=== PATIENT | female | born 1975 | race Caucasian/White ===

== ENCOUNTER 2018-09-09 21:10 | Emergency (ER) | payer SELFPAY ==
[~2018-09-09] VITALS: Ht 177.8 cm; Wt 100.0 kg
[2018-09-09 21:17] VITALS: TEMP 97
[2018-09-09 21:52] LABS: BASO # 0.1 (0.0-0.2); BASO % 0.6 % (0.0-2.0); EOS # 0.3 (0.0-0.7); EOS % 3.3 % (0-4.0); GRAN # 5.3 (1.4-6.5); GRAN % 67.9 % (42.2-75.2); HEMATOCRIT 44.6 % (37.0-47.0); HEMOGLOBIN 15.1 g/dl (12.5-16.0); LYMPH # 1.5 (1.2-3.4); LYMPH % 19.2 % (20.0-51.0); MEAN CELL VOLUME 86 fl (80.0-100.0); MEAN CORPUSCULAR HEMOGLOBIN 29 pg (27.0-31.0); MEAN CORPUSCULAR HGB CONC 34 g/dl (33.0-37.0); MEAN PLATELET VOLUME 9.4 fl (7.4-10.4); MONO # 0.7 (0.1-0.6); MONO % 8.6 % (1.7-9.3); PLATELET COUNT 297 K/mm3 (130-400); REDCELL DISTRIBUTION WIDTH-CV 13.2 % (11.5-14.5)
[2018-09-09 22:05] LABS: ALBUMIN 4.8 gm/dL (3.5-5.0); BILIRUBIN,TOTAL 0.3 mg/dL (0.0-1.0); C-REACTIVE PROTEIN 1.3 mg/dL (0.0-0.9); CALCIUM 9.8 mg/dL (8.4-10.2); CREATININE, serum 0.56 (0.52-1.25); POTASSIUM 3.3 mmol/L (3.4-5.0)
[2018-09-10 00:35] LABS: COLLECTION METHOD CLEAN CATCH
[2018-09-10 00:55] LABS: MUCOUS Present /lpf; PH 6 (5-8); SQUAMOUS EPITHELIAL 0-2 /hpf; URINE APPEARANCE Clear; URINE BACTERIA None Seen /hpf; URINE BILIRUBIN Negative (NEGATIVE); URINE BLOOD 2+ (NEGATIVE); URINE COLOR Yellow; URINE GLUCOSE Negative (NEGATIVE); URINE KETONE Negative (NEGATIVE); URINE LEUKOCYTE ESTERASE Negative (NEGATIVE); URINE NITRATE Negative (NEGATIVE); URINE PROTEIN(semi-quant) Negative (NEGATIVE); URINE RBC 0-2 /hpf; URINE UROBILINOGEN Negative (NEGATIVE)
[2018-09-10] MEDS ORDERED: ZOFRAN ODT4 MG PO (02:14)
[2018-09-10] MEDS ORDERED: NORCO 325 MG-51 TAB PO (02:14)
[2018-09-10 02:55] VITALS: BP 121/87; PULSE 101
== END 2018-09-10 02:55 | disposition home or self-care (01) ==
LOC: COL.ER 21:10
PROVIDERS: Nurse Practitioner
DX: R11.10 Vomiting, unspecified (principal); R10.0 Acute abdomen; R19.7 Diarrhea, unspecified; Z87.19 Personal history of other diseases of the digestive system; Z90.49 Acquired absence of other specified parts of digestive tract; Z90.710 Acquired absence of both cervix and uterus
CPT/HCPCS: J1170; J2405; J2550; J7030; Q9967

== ENCOUNTER 2018-10-07 18:35 | Emergency (ER) | payer MEDICAID ==
[~2018-10-07] VITALS: Ht 177.8 cm; Wt 95.5 kg
[~2018-10-07 18:35] MED LIST: NORCO 325 MG-51 TAB PO; ZOFRAN ODT4 MG PO
[2018-10-07 18:50] VITALS: BP 140/101; TEMP 98.2
[2018-10-07] MEDS ORDERED: MULTI VITAMINS1 TAB PO (19:39)
[2018-10-07] MEDS ORDERED: MELATONIN1 MG PO (19:39)
[2018-10-07 20:01] LABS: ALBUMIN 4.8 gm/dL (3.5-5.0); BILIRUBIN,TOTAL 0.3 mg/dL (0.0-1.0); CALCIUM 9.7 mg/dL (8.4-10.2); CREATININE, serum 0.52 (0.52-1.25); POTASSIUM 3.2 mmol/L (3.4-5.0)
[2018-10-07 20:21] LABS: BASO % 0.4 % (0.0-2.0); EOS # 0.3 (0.0-0.7); GRAN # 4.7 (1.4-6.5); GRAN % 67.6 % (42.2-75.2); HEMATOCRIT 42.8 % (37.0-47.0); HEMOGLOBIN 14.6 g/dl (12.5-16.0); LYMPH # 1.5 (1.2-3.4); LYMPH % 20.8 % (20.0-51.0); MEAN CELL VOLUME 86 fl (80.0-100.0); MEAN CORPUSCULAR HEMOGLOBIN 29 pg (27.0-31.0); MEAN CORPUSCULAR HGB CONC 34 g/dl (33.0-37.0); MEAN PLATELET VOLUME 9.4 fl (7.4-10.4); MONO # 0.5 (0.1-0.6); MONO % 6.6 % (1.7-9.3); PLATELET COUNT 313 K/mm3 (130-400); RED BLOOD COUNT 4.98 M/mm3 (4.10-5.30); REDCELL DISTRIBUTION WIDTH-CV 13.9 % (11.5-14.5)
[2018-10-07] MEDS ORDERED: NORCO 325 MG-51 TAB PO (21:32)
[2018-10-07] MEDS ORDERED: ZOFRAN 4MG T4 MG/TAB PO (21:32)
[2018-10-07] MEDS ORDERED: VANCOCIN H125 MG/CAP PO (21:32)
[2018-10-07 21:48] VITALS: PULSE 103
== END 2018-10-07 21:49 | disposition home or self-care (01) ==
LOC: COL.ER 18:35
PROVIDERS: Emergency Medicine
DX: R11.10 Vomiting, unspecified (principal); R19.7 Diarrhea, unspecified; R10.9 Unspecified abdominal pain; Z90.89 Acquired absence of other organs; Z90.49 Acquired absence of other specified parts of digestive tract; Z90.710 Acquired absence of both cervix and uterus
CPT/HCPCS: J1885; J2405; J3010; J7030